=== PATIENT | male | born 1990 | race African-American/Black ===

== ENCOUNTER 2019-04-10 18:14 | Emergency (ER) | payer SELFPAY ==
[~2019-04-10] VITALS: Ht 185.4 cm; Wt 77.3 kg
[2019-04-10] MEDS ORDERED: IBUP-1506 PO (18:32)
[2019-04-10] MEDS ORDERED: AMOX TR/POT CLAV 875 MG/125 MG TABLET PO ONE (19:30)
[2019-04-10] MEDS ORDERED: KETOROLAC TROMETHAMINE 30 MG/ML VIAL IM ONE (19:30)
[2019-04-10] MEDS ORDERED: ACETAMINOPHEN 500 MG TABLET PO ONE (19:30)
[2019-04-10 20:52] VITALS: BP 123/75
== END 2019-04-10 21:16 | disposition home or self-care (01) ==
LOC: EMS 18:18
DX: K04.7 Periapical abscess without sinus (principal); F17.210 Nicotine dependence, cigarettes, uncomplicated; F12.90 Cannabis use, unspecified, uncomplicated
CPT/HCPCS: 96372; 99283; J1885